=== PATIENT | male | born 1995 | race Hispanic/Latino ===

== ENCOUNTER 2021-07-13 21:58 | Emergency (ER) | payer SELFPAY ==
[~2021-07-13] VITALS: Ht 177.8 cm; Wt 195.0 kg
[2021-07-13 23:11] LABS: BASOPHILS % (AUTO) 0.6 % (0.0-5.0); EOSINOPHILS % (AUTO) 2.1 % (0.0-8.0); HEMATOCRIT 45.9 % (42-54); LYMPHOCYTES % (AUTO) 39.4 % (21.0-51.0); MEAN CORPUSCULAR HEMOGLOBIN 29.1 pg (27.0-33.0); MEAN CORPUSCULAR HGB CONC 33.1 g/dL (32.0-36.0); MEAN CORPUSCULAR VOLUME 87.8 fL (79-99); MONOCYTES % (AUTO) 5.3 % (3.0-13.0); NEUTROPHILS % (AUTO) 51.8 % (40.0-77.0); PLATELET COUNT (AUTO) 177 K/uL (130-400); RED BLOOD CELL COUNT(AUTO) 5.23 MIL/uL (4.50-6.20); WHITE BLOOD COUNT (AUTO) 10.1 K/uL (4.8-10.8)
[2021-07-13 23:12] LABS: APPEARANCE,URINE Clear (CLEAR); BILIRUBIN,URINE Negative (NEGATIVE); COLOR,URINE Yellow (YELLOW); GLUCOSE, URINE (UA) >=1000 mg/dL (NEGATIVE); KETONES,URINE Trace mg/dL (NEGATIVE); LEUKOCYTE ESTERASE ,URINE Negative (NEGATIVE); NITRATE,URINE Negative (NEGATIVE); OCCULT BLOOD,URINE Negative (NEGATIVE); PROTEIN,URINE Negative (NEGATIVE); UROBILINOGEN,URINE 0.2 mg/dL (0.2-1.0)
[2021-07-13 23:24] LABS: ALBUMIN 3.4 g/dL (3.5-5.0); BILIRUBIN,TOTAL 0.3 mg/dL (0.2-1.0); CREATININE 0.8 mg/dL (0.5-1.5); CRP QUANTITATIVE 9.4 mg/L (0.00-9.0); POTASSIUM 3.9 mmol/L (3.5-5.1); TOTAL PROTEIN, SERUM 6.8 g/dL (6.0-8.3)
[2021-07-13 23:40] LABS: B-TYPE NATRIURETIC PEPTIDE 18 pg/mL (0-100)
[2021-07-13 23:48] LABS: ABG BASE EXCESS -2.2 mmol/L (-2.0-3.0); ABG HCO3 22.2 mmol/L (21.0-28.0); ABG PCO2 37 mmHg (35-48)
[2021-07-13] MEDS: INSULIN HUMULIN R 100 UNIT/ML 3ML SQ ONE (23:55)
[2021-07-13] MEDS: 0.9%NACL 1000ML 1,000 ML IV ONE (23:55)
[2021-07-14] MEDS: 0.9%NACL 1000ML 1,000 ML IV ONE (00:26)
[2021-07-14 00:37] VITALS: BP 159/96
[2021-07-14] MEDS: INSULIN HUMULIN R 100 UNIT/ML 3ML ONE (01:07)
[2021-07-14] MEDS: INSULIN HUMULIN R 100 UNIT/ML 3ML IV ONE (01:15)
[2021-07-14] MEDS ORDERED: METF-444 PO (01:17)
== END 2021-07-14 01:58 | disposition home or self-care (01) ==
LOC: EDH 21:58
DX: E11.65 Type 2 diabetes mellitus with hyperglycemia (principal); E86.9 Volume depletion, unspecified; I10 Essential (primary) hypertension; Z79.4 Long term (current) use of insulin; E66.01 Morbid (severe) obesity due to excess calories; Z68.44 Body mass index [BMI] 60.0-69.9, adult
CPT/HCPCS: 36415; 36600; 71045; 80053; 81003; 82010; 82803; 82948; 83880; 84484; 85025; 86140; 96361; 96372; 96374; 99284; J1815 ×2

== ENCOUNTER 2022-06-28 00:01 | Emergency (ER) | payer OTHER ==
[~2022-06-28] VITALS: Ht 177.8 cm; Wt 203.2 kg
[~2022-06-28 00:01] MED LIST: METF-444 PO
[2022-06-28 00:05] VITALS: BP 154/96
[2022-06-28] MEDS ORDERED: LIDOCAINE HCL 1% 20 ML VIAL INJ SCH (00:30)
[2022-06-28] MEDS ORDERED: SULF1TAB42 PO (00:34)
[2022-06-28] MEDS ORDERED: CEPH500B PO (00:34)
[2022-06-28] MEDS ORDERED: TETANUS/DIPHTHERIA TOXOID [ADULT] 0.5 ML VIAL IM ONE (00:39)
[2022-06-28] MEDS ORDERED: SULFAMETHOX-TMP DS 800/160 TAB PO SCH (01:00)
[2022-06-28] MEDS ORDERED: CEPHALEXIN 500 MG CAPSULE PO ONE (01:00)
[2022-06-28] MEDS ORDERED: DIPH,PERTUSS(ACELL),TET VAC/PF 0.5 ML VIAL IM ONE (01:00)
== END 2022-06-28 00:52 | disposition home or self-care (01) ==
LOC: EDH 00:01
DX: L03.317 Cellulitis of buttock (principal); L02.31 Cutaneous abscess of buttock; E11.9 Type 2 diabetes mellitus without complications; E66.01 Morbid (severe) obesity due to excess calories; Z79.84 Long term (current) use of oral hypoglycemic drugs; Z68.44 Body mass index [BMI] 60.0-69.9, adult
CPT/HCPCS: 90471; 90714

== ENCOUNTER 2022-11-06 19:24 | Emergency (ER) | payer OTHER ==
[~2022-11-06] VITALS: Ht 177.8 cm; Wt 206.8 kg
[~2022-11-06 19:24] MED LIST changes: +CEPH500B PO; +SULF1TAB42 PO
[2022-11-07] MEDS ORDERED: TETANUS/DIPHTHERIA TOXOID [ADULT] 0.5 ML VIAL IM ONE (01:30)
[2022-11-07 01:54] VITALS: BP 145/78
[2022-11-07] MEDS ORDERED: BACITRACIN 1 EACH PACKET TP ONE (04:00)
== END 2022-11-07 04:05 | disposition home or self-care (01) ==
LOC: EDH 19:24
DX: S80.02XA Contusion of left knee, initial encounter (principal); S80.811A Abrasion, right lower leg, initial encounter; I10 Essential (primary) hypertension; E11.9 Type 2 diabetes mellitus without complications; E66.09 Other obesity due to excess calories; Z68.44 Body mass index [BMI] 60.0-69.9, adult; Z79.84 Long term (current) use of oral hypoglycemic drugs; Z79.899 Other long term (current) drug therapy; Z98.890 Other specified postprocedural states; Z90.89 Acquired absence of other organs; W18.39XA Other fall on same level, initial encounter; Y93.89 Activity, other specified; Y92.89 Other specified places as the place of occurrence of the external cause; Y99.8 Other external cause status
CPT/HCPCS: 73562; 90471; 90714